=== PATIENT | male | born 1990 | race Caucasian/White ===

== ENCOUNTER 2022-11-16 19:03 | Inpatient (IN) | payer MEDICAID ==
[~2022-11-16] VITALS: Ht 177.8 cm; Wt 71.9 kg
[2022-11-16 19:05] VITALS: BP 112/74
[2022-11-16] MEDS ORDERED: KEPPRA1000 MG PO (19:17)
[2022-11-16 19:53] LABS: BASO % 0.3 % (0.0-1.0); EOS % 0.3 % (1.0-4.0); HEMATOCRIT 41.2 % (42.0-52.0); LYMPH # 1.6 10*3/uL (1.3-4.4); LYMPH % 18.4 % (27.0-41.0); MEAN CELL VOLUME 97.2 fl (80.0-94.0); MEAN PLATELET VOLUME 10.1 fl (9.6-12.3); MONO # 0.6 10*3/uL (0.1-1.0); MONO % 6.3 % (3.0-9.0); NEUT # 6.5 10*3/uL (2.3-7.9); NEUT % 74.4 % (47.0-73.0); PLATELET COUNT AUTOMATED 137 10*3/uL (130-400); RED BLOOD COUNT 4.24 10*6/uL (4.50-5.90); RED CELL DISTRI WIDTH 13.7 % (0-14.5); WHITE BLOOD COUNT 8.7 10*3/uL (4.8-10.8)
[2022-11-16 20:13] LABS: BILIRUBIN 2+ (Negative); BLOOD Negative (Negative); CLARITY Clear (Clear); COLOR Dark Yellow (Yellow); GLUCOSE Negative (Negative); KETONE 1+ (Negative); LEUKO ESTERASE Trace (Negative); NITRITE Negative (Negative); SPECIFIC GRAVITY >= 1.030 (1.001-1.030)
[2022-11-16 20:21] LABS: ALKALINE PHOSPHATASE 44 U/L (46-116); BUN 7 mg/dl (9-23); CHLORIDE 107 mmol/L (98-107); POTASSIUM 3.1 mmol/L (3.4-5.1); SGPT/ALT 75 U/L (10-49); TOTAL PROTEIN 6.3 gm/dL (6.0-8.0)
[2022-11-16 20:24] LABS: ETHYL ALCOHOL 360.9 mg/dl (<3)
[2022-11-16 20:38] LABS: EPITHELIAL CELLS 0-2; MUCOUS 1+; WBC 0-2 wbc/hpf (0-5)
[2022-11-16 22:38] LABS: URINE AMPHETAMINES Negative (1000ng/ml); URINE BARBITURATES Negative (200ng/ml); URINE BENZODIAZEPINES Positive (200ng/ml); URINE CANNABINOIDS (THC) Negative (50ng/ml); URINE COCAINE Negative (300ng/ml); URINE METHADONE Negative (300ng/ml); URINE OPIATES Negative (300ng/ml); URINE PHENCYCLIDINE Negative (25ng/ml)
[2022-11-17 02:18] VITALS: BP 122/76
[2022-11-17 09:18] VITALS: BP 126/90
[2022-11-17 11:55] VITALS: BP 127/88
[2022-11-17 16:35] VITALS: BP 154/94
[2022-11-17 20:00] VITALS: BP 147/105
[2022-11-17] MEDS ORDERED: SEROQUEL50 MG PO (22:05)
[2022-11-17 22:14] VITALS: BP 142/90
[2022-11-18] VITALS: BP 140/88
[2022-11-18 07:31] LABS: BASO % 0.5 % (0.0-1.0); EOS % 0.7 % (1.0-4.0); HEMATOCRIT 42.9 % (42.0-52.0); LYMPH # 1.4 10*3/uL (1.3-4.4); LYMPH % 24.6 % (27.0-41.0); MEAN CELL VOLUME 95.8 fl (80.0-94.0); MEAN CORPUSCULAR HGB 33.7 pg (27.0-31.0); MEAN CORPUSCULAR HGB CONC 35.2 g/dl (33.0-37.0); MEAN PLATELET VOLUME 10.2 fl (9.6-12.3); MONO # 0.5 10*3/uL (0.1-1.0); MONO % 8.8 % (3.0-9.0); NEUT # 3.7 10*3/uL (2.3-7.9); PLATELET COUNT AUTOMATED 137 10*3/uL (130-400); RED BLOOD COUNT 4.48 10*6/uL (4.50-5.90); WHITE BLOOD COUNT 5.7 10*3/uL (4.8-10.8)
[2022-11-18 07:59] LABS: ALKALINE PHOSPHATASE 50 U/L (46-116); CHLORIDE 104 mmol/L (98-107); CHOLESTEROL 153 mg/dL (<200); FREE T4 1.03 ng/dl (0.89-1.76); LDL CHOLESTEROL 59 mg/dL (9-159); POTASSIUM 3.3 mmol/L (3.4-5.1); SGPT/ALT 60 U/L (10-49); TOTAL PROTEIN 6.2 gm/dL (6.0-8.0); TRIGLYCERIDES 86 mg/dl (<150)
[2022-11-18 08:00] VITALS: BP 146/102
[2022-11-18 08:10] LABS: BUN < 5 mg/dl (9-23)
[2022-11-18 12:00] VITALS: BP 143/102
[2022-11-18] MEDS ORDERED: LOPRESSOR50 M1 PO (13:19)
[2022-11-18] MEDS ORDERED: LEVETIRACETAM500 MG PO (13:24)
[2022-11-18] MEDS ORDERED: VIMPAT100 MG PO (13:24)
[2022-11-18] MEDS ORDERED: THIAMINE HCL100 MG PO (13:27)
[2022-11-18 13:41] VITALS: BP 138/84
== END 2022-11-18 14:00 | disposition home or self-care (01) | DRG 53 ==
LOC: ED 19:03 → EDHOLD 11-17 07:05 → EDBD 11-17 07:05 → 5E 11-17 07:05
PROVIDERS: Emergency Medicine; Internal Medicine; ADMIT Internal Medicine; ATTEND Internal Medicine
DX: G40.909 Epilepsy, unspecified, not intractable, without status epilepticus (principal); F10.920 Alcohol use, unspecified with intoxication, uncomplicated; E87.20 Acidosis, unspecified; E87.6 Hypokalemia; E83.51 Hypocalcemia; R00.0 Tachycardia, unspecified; R74.01 Elevation of levels of liver transaminase levels; E80.6 Other disorders of bilirubin metabolism; F17.210 Nicotine dependence, cigarettes, uncomplicated; I10 Essential (primary) hypertension; Z88.0 Allergy status to penicillin; Z88.8 Allergy status to other drugs, medicaments and biological substances; Z79.899 Other long term (current) drug therapy; Z71.6 Tobacco abuse counseling

== ENCOUNTER 2023-01-06 20:03 | Emergency (ER) | payer MEDICAID ==
[~2023-01-06 20:03] MED LIST: KEPPRA1000 MG PO; LEVETIRACETAM500 MG PO; LOPRESSOR50 M1 PO; SEROQUEL50 MG PO; THIAMINE HCL100 MG PO; VIMPAT100 MG PO
== END 2023-01-06 20:30 | disposition left against medical advice (07) ==
LOC: ED 20:03
DX: R69 Illness, unspecified (principal); Z88.0 Allergy status to penicillin; Z88.8 Allergy status to other drugs, medicaments and biological substances; Z53.21 Procedure and treatment not carried out due to patient leaving prior to being seen by health care provider

== ENCOUNTER 2023-02-15 18:52 | Emergency (ER) | payer MEDICAID ==
[~2023-02-15] VITALS: Ht 177.8 cm; Wt 74.8 kg
== END 2023-02-15 20:04 | disposition home or self-care (01) ==
LOC: ED 18:52
DX: S61.012A Laceration without foreign body of left thumb without damage to nail, initial encounter (principal); F17.200 Nicotine dependence, unspecified, uncomplicated; Z88.0 Allergy status to penicillin; Z88.8 Allergy status to other drugs, medicaments and biological substances; Z79.899 Other long term (current) drug therapy; Z90.89 Acquired absence of other organs; W45.8XXA Other foreign body or object entering through skin, initial encounter; Y93.89 Activity, other specified; Y92.89 Other specified places as the place of occurrence of the external cause; Y99.8 Other external cause status

== ENCOUNTER 2023-03-01 12:43 | Emergency (ER) | payer MEDICAID ==
[~2023-03-01] VITALS: Ht 170.1 cm; Wt 72.6 kg
[2023-03-01 13:30] LABS: EOS % 0.5 % (1.0-4.0)
[2023-03-01 13:49] LABS: BASO % 0.3 % (0.0-1.0); HEMATOCRIT 42.5 % (42.0-52.0); LYMPH # 2.1 10*3/uL (1.3-4.4); LYMPH % 55.9 % (27.0-41.0); MEAN CELL VOLUME 95.7 fl (80.0-94.0); MEAN CORPUSCULAR HGB CONC 35.5 g/dl (33.0-37.0); MEAN PLATELET VOLUME 10.1 fl (9.6-12.3); MONO # 0.4 10*3/uL (0.1-1.0); MONO % 9.5 % (3.0-9.0); NEUT # 1.3 10*3/uL (2.3-7.9); NEUT % 33.8 % (47.0-73.0); PLATELET COUNT AUTOMATED 143 10*3/uL (130-400); RED BLOOD COUNT 4.44 10*6/uL (4.50-5.90); RED CELL DISTRI WIDTH 13.7 % (0-14.5); WHITE BLOOD COUNT 3.8 10*3/uL (4.8-10.8)
[2023-03-01 13:51] LABS: ALKALINE PHOSPHATASE 41 U/L (46-116); BUN 7 mg/dl (9-23); CHLORIDE 108 mmol/L (98-107); POTASSIUM 3.8 mmol/L (3.4-5.1); SGPT/ALT 14 U/L (5-49); TOTAL PROTEIN 6.7 gm/dL (6.0-8.0)
[2023-03-01 14:18] LABS: BILIRUBIN Negative (Negative); BLOOD Negative (Negative); CLARITY Clear (Clear); COLOR Yellow (Yellow); GLUCOSE Negative (Negative); KETONE Negative (Negative); LEUKO ESTERASE Negative (Negative); NITRITE Negative (Negative)
[2023-03-01 14:32] LABS: RBC 0-2 rbc/hpf (0-2); WBC 0-2 wbc/hpf (0-5)
[2023-03-01] MEDS ORDERED: METOPROLOL SUCC50 M1 PO (14:46)
[2023-03-01] MEDS ORDERED: SEROQUEL50 MG PO (14:46)
[2023-03-01] MEDS ORDERED: NATURE'S BLEND100 M2 PO (14:46)
[2023-03-01] MEDS ORDERED: KEPPRA1000 MG PO (14:46)
[2023-03-01] MEDS ORDERED: VIMPAT100 MG PO (14:46)
== END 2023-03-01 14:54 | disposition home or self-care (01) ==
LOC: ED
PROVIDERS: Physician Assistant Medical
DX: S93.402A Sprain of unspecified ligament of left ankle, initial encounter (principal); M62.830 Muscle spasm of back; R56.9 Unspecified convulsions; I10 Essential (primary) hypertension; Z88.0 Allergy status to penicillin; Z88.8 Allergy status to other drugs, medicaments and biological substances; Z90.89 Acquired absence of other organs; Z98.890 Other specified postprocedural states; F17.200 Nicotine dependence, unspecified, uncomplicated; F10.10 Alcohol abuse, uncomplicated; X50.1XXA Overexertion from prolonged static or awkward postures, initial encounter; Y93.89 Activity, other specified; Y92.89 Other specified places as the place of occurrence of the external cause; Y99.8 Other external cause status

== ENCOUNTER 2023-04-29 02:29 | Emergency (ER) | payer MEDICAID ==
[~2023-04-29] VITALS: Ht 177.8 cm; Wt 74.8 kg
[~2023-04-29 02:29] MED LIST changes: +METOPROLOL SUCC50 M1 PO; +NATURE'S BLEND100 M2 PO
== END 2023-04-29 04:21 | disposition home or self-care (01) ==
LOC: ED 02:29
DX: S05.01XA Injury of conjunctiva and corneal abrasion without foreign body, right eye, initial encounter (principal); G40.909 Epilepsy, unspecified, not intractable, without status epilepticus; I10 Essential (primary) hypertension; F17.200 Nicotine dependence, unspecified, uncomplicated; Z88.0 Allergy status to penicillin; Z88.8 Allergy status to other drugs, medicaments and biological substances; Z79.899 Other long term (current) drug therapy; Z90.89 Acquired absence of other organs; W55.09XA Other contact with cat, initial encounter; Y93.89 Activity, other specified; Y92.89 Other specified places as the place of occurrence of the external cause; Y99.8 Other external cause status

== ENCOUNTER 2023-05-14 15:19 | Emergency (ER) | payer MEDICAID ==
[~2023-05-14] VITALS: Wt 71.7 kg
== END 2023-05-14 16:47 | disposition left against medical advice (07) ==
LOC: ED 15:19
DX: S09.90XA Unspecified injury of head, initial encounter (principal); R56.9 Unspecified convulsions; R09.81 Nasal congestion; Z88.0 Allergy status to penicillin; Z88.8 Allergy status to other drugs, medicaments and biological substances; Z90.89 Acquired absence of other organs; Z98.890 Other specified postprocedural states; F10.10 Alcohol abuse, uncomplicated; F17.200 Nicotine dependence, unspecified, uncomplicated; W01.10XA Fall on same level from slipping, tripping and stumbling with subsequent striking against unspecified object, initial encounter; Y93.89 Activity, other specified; Y92.89 Other specified places as the place of occurrence of the external cause; Y99.8 Other external cause status

== ENCOUNTER 2023-05-16 07:00 | Emergency (ER) | payer MEDICAID ==
[~2023-05-16] VITALS: Ht 177.8 cm; Wt 74.8 kg
[2023-05-16] MEDS ORDERED: VIMPAT200 MG PO (07:12)
[2023-05-16 08:00] LABS: BASO % 0.5 % (0.0-1.0); EOS % 0.7 % (1.0-4.0); HEMATOCRIT 41.3 % (42.0-52.0); LYMPH # 1.9 10*3/uL (1.3-4.4); LYMPH % 32.7 % (27.0-41.0); MEAN CORPUSCULAR HGB 35.2 pg (27.0-31.0); MEAN CORPUSCULAR HGB CONC 34.9 g/dl (33.0-37.0); MEAN PLATELET VOLUME 12.3 fl (9.6-12.3); MONO # 0.6 10*3/uL (0.1-1.0); MONO % 10.7 % (3.0-9.0); NEUT # 3.1 10*3/uL (2.3-7.9); NEUT % 54.9 % (47.0-73.0); PLATELET COUNT AUTOMATED 69 10*3/uL (130-400); RED BLOOD COUNT 4.09 10*6/uL (4.50-5.90); RED CELL DISTRI WIDTH 12.5 % (0-14.5); WHITE BLOOD COUNT 5.7 10*3/uL (4.8-10.8)
[2023-05-16 08:20] LABS: ALKALINE PHOSPHATASE 38 U/L (46-116); BUN 12 mg/dl (9-23); CHLORIDE 96 mmol/L (98-107); ETHYL ALCOHOL 225.4 mg/dl (<3); SGPT/ALT 133 U/L (5-49); TOTAL PROTEIN 6.9 gm/dL (6.0-8.0)
[2023-05-16] MEDS ORDERED: CLINDAMYCIN HC300 MG PO (08:26)
== END 2023-05-16 08:30 | disposition left against medical advice (07) ==
LOC: ED 07:00
PROVIDERS: Emergency Medicine
DX: F10.920 Alcohol use, unspecified with intoxication, uncomplicated (principal); K14.8 Other diseases of tongue; G40.909 Epilepsy, unspecified, not intractable, without status epilepticus; F17.200 Nicotine dependence, unspecified, uncomplicated; Z88.0 Allergy status to penicillin; Z88.8 Allergy status to other drugs, medicaments and biological substances; Z79.899 Other long term (current) drug therapy; Z90.89 Acquired absence of other organs; Y90.7 Blood alcohol level of 200-239 mg/100 ml

== ENCOUNTER 2023-05-18 19:30 | Emergency (ER) | payer MEDICAID ==
[~2023-05-18] VITALS: Ht 177.8 cm; Wt 72.6 kg
[~2023-05-18 19:30] MED LIST changes: +CLINDAMYCIN HC300 MG PO; +VIMPAT200 MG PO
[2023-05-18] MEDS ORDERED: VIBRAMYCIN100 MG PO (22:45)
[2023-05-18 23:26] LABS: BASO % 0.5 % (0.0-1.0); EOS # 0.1 10*3/uL (0.0-0.4); EOS % 1.5 % (1.0-4.0); HEMATOCRIT 35.3 % (42.0-52.0); LYMPH # 1.7 10*3/uL (1.3-4.4); LYMPH % 41.3 % (27.0-41.0); MEAN CELL VOLUME 102.3 fl (80.0-94.0); MEAN CORPUSCULAR HGB 35.7 pg (27.0-31.0); MEAN CORPUSCULAR HGB CONC 34.8 g/dl (33.0-37.0); MEAN PLATELET VOLUME 10.9 fl (9.6-12.3); MONO # 0.6 10*3/uL (0.1-1.0); NEUT # 1.7 10*3/uL (2.3-7.9); NEUT % 42.4 % (47.0-73.0); PLATELET COUNT AUTOMATED 143 10*3/uL (130-400); RED BLOOD COUNT 3.45 10*6/uL (4.50-5.90); RED CELL DISTRI WIDTH 12.3 % (0-14.5)
[2023-05-18 23:47] LABS: ALKALINE PHOSPHATASE 33 U/L (46-116); CHLORIDE 100 mmol/L (98-107); POTASSIUM 3.2 mmol/L (3.4-5.1); SGPT/ALT 158 U/L (5-49); TOTAL PROTEIN 6.3 gm/dL (6.0-8.0)
[2023-05-18 23:51] LABS: BUN < 5 mg/dl (9-23)
== END 2023-05-19 05:55 | disposition home or self-care (01) ==
LOC: ED 19:30
PROVIDERS: Emergency Medicine
DX: S00.532A Contusion of oral cavity, initial encounter (principal); F10.10 Alcohol abuse, uncomplicated; F17.200 Nicotine dependence, unspecified, uncomplicated; Z88.0 Allergy status to penicillin; Z88.8 Allergy status to other drugs, medicaments and biological substances; Z90.89 Acquired absence of other organs; Z98.890 Other specified postprocedural states; X58.XXXA Exposure to other specified factors, initial encounter; Y93.89 Activity, other specified; Y92.099 Unspecified place in other non-institutional residence as the place of occurrence of the external cause; Y99.8 Other external cause status

== ENCOUNTER 2023-07-06 20:01 | Emergency (ER) | payer MEDICAID ==
[~2023-07-06] VITALS: Ht 177.8 cm; Wt 81.6 kg
[~2023-07-06 20:01] MED LIST changes: +VIBRAMYCIN100 MG PO
[2023-07-06] MEDS ORDERED: VIBRAMYCIN100 MG PO (20:24)
[2023-07-06] MEDS ORDERED: SILVADENE20 GM T (20:24)
[2023-07-06] MEDS ORDERED: Doxycycline Hyclate 100 MG CAP PO ONE (20:25)
[2023-07-06] MEDS ORDERED: Lidocaine/Prilocaine 5 GM TUBE T ONE (20:25)
[2023-07-06] MEDS ORDERED: SILVER SULFADIAZINE 25 GM TUBE T ONE (20:25)
== END 2023-07-06 20:57 | disposition home or self-care (01) ==
LOC: ED 20:01
DX: T23.212A Burn of second degree of left thumb (nail), initial encounter (principal); L03.012 Cellulitis of left finger; G40.909 Epilepsy, unspecified, not intractable, without status epilepticus; F17.200 Nicotine dependence, unspecified, uncomplicated; Z88.0 Allergy status to penicillin; Z88.8 Allergy status to other drugs, medicaments and biological substances; Z79.899 Other long term (current) drug therapy; Z90.89 Acquired absence of other organs; Z98.890 Other specified postprocedural states; X08.8XXA Exposure to other specified smoke, fire and flames, initial encounter; Y93.89 Activity, other specified; Y92.89 Other specified places as the place of occurrence of the external cause; Y99.8 Other external cause status

== ENCOUNTER 2023-08-03 21:19 | Emergency (ER) | payer SELFPAY ==
[~2023-08-03] VITALS: Wt 75.5 kg
[~2023-08-03 21:19] MED LIST changes: +ATARAX,VISTARIL50 MG PO; +ONDANSETRON4 MG SL; +SILVADENE20 GM T
[2023-08-03] MEDS ORDERED: Thiamine 200 MG/2 ML VIAL IV ONE (21:30)
[2023-08-03] MEDS ORDERED: SODIUM CHLORIDE 0.9% 1,000 ML IV ONE (21:30)
[2023-08-03 21:43] LABS: BASO % 0.3 % (0.0-1.0); EOS # 0.1 10*3/uL (0.0-0.4); EOS % 1.1 % (1.0-4.0); LYMPH # 2.7 10*3/uL (1.3-4.4); MEAN CELL VOLUME 101.3 fl (80.0-94.0); MEAN CORPUSCULAR HGB 33.2 pg (27.0-31.0); MEAN CORPUSCULAR HGB CONC 32.8 g/dl (33.0-37.0); MEAN PLATELET VOLUME 9.6 fl (9.6-12.3); MONO # 0.5 10*3/uL (0.1-1.0); MONO % 6.8 % (3.0-9.0); NEUT % 54.3 % (47.0-73.0); PLATELET COUNT AUTOMATED 379 10*3/uL (130-400); RED BLOOD COUNT 3.95 10*6/uL (4.50-5.90); RED CELL DISTRI WIDTH 12.3 % (0-14.5); WHITE BLOOD COUNT 7.4 10*3/uL (4.8-10.8)
[2023-08-03 22:15] LABS: ALKALINE PHOSPHATASE 30 U/L (46-116); CHLORIDE 107 mmol/L (98-107); POTASSIUM 4.2 mmol/L (3.4-5.1); SGPT/ALT 32 U/L (5-49); TOTAL PROTEIN 6.4 gm/dL (6.0-8.0)
[2023-08-03 22:18] LABS: BUN < 5 mg/dl (9-23)
[2023-08-03 22:20] LABS: ETHYL ALCOHOL 311.4 mg/dl (<3)
[2023-08-04 00:11] LABS: BILIRUBIN Negative (Negative); BLOOD Negative (Negative); CLARITY Clear (Clear); COLOR Yellow (Yellow); GLUCOSE Negative (Negative); KETONE Negative (Negative); LEUKO ESTERASE Negative (Negative); NITRITE Negative (Negative); SPECIFIC GRAVITY <= 1.005 (1.001-1.030); UROBILINOGEN 0.2 E.U./dl (0.0-1.0)
[2023-08-04 00:14] LABS: URINE AMPHETAMINES Negative (1000ng/ml); URINE BARBITURATES Negative (200ng/ml); URINE BENZODIAZEPINES Negative (200ng/ml); URINE CANNABINOIDS (THC) Negative (50ng/ml); URINE COCAINE Negative (300ng/ml); URINE METHADONE Negative (300ng/ml); URINE OPIATES Negative (300ng/ml); URINE PHENCYCLIDINE Negative (25ng/ml)
[2023-08-04 00:19] LABS: WBC 0-2 wbc/hpf (0-5)
[2023-08-04] MEDS ORDERED: LEVETIRACETAM 500 MG TAB PO ONE (06:45)
[2023-08-04] MEDS ORDERED: DIAZEPAM 10 MG/2 ML SYR IV ONE (06:55)
[2023-08-04] MEDS ORDERED: PREDNISONE20 M1 PO (07:13)
[2023-08-04] MEDS ORDERED: methylPREDNISolone sod succ 125 MG VIAL IV ONE (07:15)
== END 2023-08-04 07:15 | disposition home or self-care (01) ==
LOC: ED 21:19
PROVIDERS: Internal Medicine
DX: F10.129 Alcohol abuse with intoxication, unspecified (principal); R56.9 Unspecified convulsions; M25.562 Pain in left knee; M79.672 Pain in left foot; D53.9 Nutritional anemia, unspecified; I10 Essential (primary) hypertension; J45.909 Unspecified asthma, uncomplicated; Z88.0 Allergy status to penicillin; Z88.8 Allergy status to other drugs, medicaments and biological substances; Z90.89 Acquired absence of other organs; Z98.890 Other specified postprocedural states; F17.200 Nicotine dependence, unspecified, uncomplicated; F10.10 Alcohol abuse, uncomplicated; Y90.5 Blood alcohol level of 100-119 mg/100 ml

== ENCOUNTER 2023-08-08 16:50 | Emergency (ER) | payer SELFPAY ==
[~2023-08-08] VITALS: Ht 177.8 cm; Wt 77.1 kg
[~2023-08-08 16:50] MED LIST changes: +PREDNISONE20 M1 PO
[2023-08-08] MEDS ORDERED: Dexamethasone Sodium Phospha 20 MG/5 ML VIAL IM ONE (17:20)
== END 2023-08-08 19:59 | disposition home or self-care (01) ==
LOC: ED 16:50
DX: S82.492A Other fracture of shaft of left fibula, initial encounter for closed fracture (principal); F17.210 Nicotine dependence, cigarettes, uncomplicated; Z88.0 Allergy status to penicillin; Z88.8 Allergy status to other drugs, medicaments and biological substances; Z79.899 Other long term (current) drug therapy; Z98.890 Other specified postprocedural states; Z90.89 Acquired absence of other organs; W22.8XXA Striking against or struck by other objects, initial encounter; Y93.89 Activity, other specified; Y92.89 Other specified places as the place of occurrence of the external cause; Y99.8 Other external cause status

== ENCOUNTER 2023-08-10 20:03 | Emergency (ER) | payer SELFPAY ==
[~2023-08-10] VITALS: Ht 177.8 cm; Wt 81.6 kg
[2023-08-10] MEDS ORDERED: HYDROCODONE-AC1 EAC1 PO (20:33)
[2023-08-10] MEDS ORDERED: Acetaminophen/Hydrocodone 5 MG/325 MG TABLET PO ONE (20:35)
== END 2023-08-10 20:39 | disposition home or self-care (01) ==
LOC: ED 20:03
DX: S82.832D Other fracture of upper and lower end of left fibula, subsequent encounter for closed fracture with routine healing (principal); F17.210 Nicotine dependence, cigarettes, uncomplicated; Z88.0 Allergy status to penicillin; Z88.8 Allergy status to other drugs, medicaments and biological substances; Z79.899 Other long term (current) drug therapy; Z98.890 Other specified postprocedural states; Z90.89 Acquired absence of other organs; V09.9XXD Pedestrian injured in unspecified transport accident, subsequent encounter

== ENCOUNTER 2023-08-15 11:10 | Emergency (ER) | payer OTHER ==
[~2023-08-15] VITALS: Ht 177.8 cm; Wt 70.3 kg
[~2023-08-15 11:10] MED LIST changes: +HYDROCODONE-AC1 EAC1 PO
[2023-08-15] MEDS ORDERED: Thiamine 200 MG/2 ML VIAL IV ONE (11:30)
[2023-08-15] MEDS ORDERED: SODIUM CHLORIDE 0.9% 1,000 ML IV ONE (11:30)
[2023-08-15] MEDS ORDERED: IOHEXOL 300 MG/ML 100 ML VIAL IV ONE (11:40)
[2023-08-15 11:52] LABS: BASO % 0.5 % (0.0-1.0); EOS # 0.1 10*3/uL (0.0-0.4); HEMATOCRIT 38.4 % (42.0-52.0); LYMPH # 2.4 10*3/uL (1.3-4.4); LYMPH % 40.4 % (27.0-41.0); MEAN CELL VOLUME 101.6 fl (80.0-94.0); MEAN CORPUSCULAR HGB 32.5 pg (27.0-31.0); MEAN PLATELET VOLUME 10.3 fl (9.6-12.3); MONO # 0.4 10*3/uL (0.1-1.0); MONO % 6.6 % (3.0-9.0); NEUT # 3.1 10*3/uL (2.3-7.9); NEUT % 51.3 % (47.0-73.0); PLATELET COUNT AUTOMATED 208 10*3/uL (130-400); RED BLOOD COUNT 3.78 10*6/uL (4.50-5.90); RED CELL DISTRI WIDTH 12.4 % (0-14.5); WHITE BLOOD COUNT 5.9 10*3/uL (4.8-10.8)
[2023-08-15] MEDS ORDERED: IOHEXOL 300 MG/ML 100 ML VIAL ONE (12:07)
[2023-08-15 12:09] LABS: ACT PARTIAL THROMBO TIME 25.6 SECONDS (20.0-32.1)
[2023-08-15 12:22] LABS: ALKALINE PHOSPHATASE 32 U/L (46-116); BUN 8 mg/dl (9-23); CHLORIDE 109 mmol/L (98-107); LIPASE 49 U/L (12-53); POTASSIUM 3.7 mmol/L (3.4-5.1); SGPT/ALT 27 U/L (5-49); TOTAL PROTEIN 6.1 gm/dL (6.0-8.0)
[2023-08-15 12:27] LABS: ETHYL ALCOHOL 304.7 mg/dl (<3)
[2023-08-15] MEDS ORDERED: ACETAMINOPHEN 325 MG TAB PO ONE (15:40)
== END 2023-08-15 15:53 ==
LOC: ED 11:10
PROVIDERS: Nurse Practitioner Family
DX: S82.65XA Nondisplaced fracture of lateral malleolus of left fibula, initial encounter for closed fracture (principal); M54.2 Cervicalgia; F10.129 Alcohol abuse with intoxication, unspecified; D53.9 Nutritional anemia, unspecified; Z88.0 Allergy status to penicillin; Z88.8 Allergy status to other drugs, medicaments and biological substances; E83.51 Hypocalcemia; I10 Essential (primary) hypertension; F32.A Depression, unspecified; F41.9 Anxiety disorder, unspecified; J45.909 Unspecified asthma, uncomplicated; E11.9 Type 2 diabetes mellitus without complications; Z90.89 Acquired absence of other organs; Z98.890 Other specified postprocedural states; F17.200 Nicotine dependence, unspecified, uncomplicated; Y90.8 Blood alcohol level of 240 mg/100 ml or more; V49.49XA Driver injured in collision with other motor vehicles in traffic accident, initial encounter; Y93.89 Activity, other specified; Y92.410 Unspecified street and highway as the place of occurrence of the external cause; Y99.8 Other external cause status

== ENCOUNTER 2024-01-28 12:39 | Emergency (ER) | payer MEDICAID ==
[~2024-01-28] VITALS: Ht 177.8 cm; Wt 68.0 kg
[~2024-01-28 12:39] MED LIST changes: +DICYCLOMINE HYD10 MG PO; +ESCITALOPRAM OX10 MG PO; +NAPROXEN500 MG PO; +PROAIR RESPICL90 MCG INH; +REMERON15 M2 PO; +VITAMIN D325 MC1 PO
[2024-01-28] MEDS ORDERED: SODIUM CHLORIDE 0.9% 1,000 ML IV ONE ×2 (13:05→13:20)
[2024-01-28] MEDS ORDERED: Naloxone Hydrochloride 2 MG/2 ML SYR IV ONE (13:05)
[2024-01-28] MEDS ORDERED: Pantoprazole Sodium 40 MG IV ONE (13:05)
[2024-01-28] MEDS ORDERED: Pantoprazole Sodium 40 MG VIAL IV ONE (13:10)
[2024-01-28 13:14] LABS: BASO % 0.3 % (0.0-1.0); EOS # 0.1 10*3/uL (0.0-0.4); EOS % 1.2 % (1.0-4.0); HEMATOCRIT 39.1 % (42.0-52.0); LYMPH # 2.7 10*3/uL (1.3-4.4); LYMPH % 46.6 % (27.0-41.0); MEAN CORPUSCULAR HGB 30.6 pg (27.0-31.0); MEAN CORPUSCULAR HGB CONC 33.2 g/dl (33.0-37.0); MEAN PLATELET VOLUME 10.4 fl (9.6-12.3); MONO # 0.3 10*3/uL (0.1-1.0); MONO % 5.7 % (3.0-9.0); NEUT # 2.6 10*3/uL (2.3-7.9); PLATELET COUNT AUTOMATED 212 10*3/uL (130-400); RED BLOOD COUNT 4.25 10*6/uL (4.50-5.90); RED CELL DISTRI WIDTH 12.7 % (0-14.5); WHITE BLOOD COUNT 5.8 10*3/uL (4.8-10.8)
[2024-01-28] MEDS ORDERED: IOHEXOL 300 MG/ML 100 ML VIAL IV ONE (13:25)
[2024-01-28 13:36] LABS: ALKALINE PHOSPHATASE 47 U/L (46-116); BUN 8 mg/dl (9-23); CHLORIDE 109 mmol/L (98-107); LIPASE 33 U/L (12-53); POTASSIUM 3.6 mmol/L (3.4-5.1); SGPT/ALT 10 U/L (5-49); TOTAL PROTEIN 6.4 gm/dL (6.0-8.0)
[2024-01-28] MEDS ORDERED: FLUMAZENIL 0.5 MG/5 ML VIAL IV ONE (15:00)
[2024-01-28 15:22] LABS: BILIRUBIN Negative (Negative); BLOOD Negative (Negative); CLARITY Clear (Clear); COLOR Yellow (Yellow); GLUCOSE Negative (Negative); KETONE Negative (Negative); LEUKO ESTERASE Negative (Negative); NITRITE Negative (Negative); PH 5.5 (4.5-8.0); UROBILINOGEN 0.2 E.U./dl (0.0-1.0)
[2024-01-28 15:30] LABS: URINE AMPHETAMINES Negative (1000ng/ml); URINE BARBITURATES Negative (200ng/ml); URINE BENZODIAZEPINES Negative (200ng/ml); URINE CANNABINOIDS (THC) Negative (50ng/ml); URINE COCAINE Negative (300ng/ml); URINE METHADONE Negative (300ng/ml); URINE OPIATES Negative (300ng/ml); URINE PHENCYCLIDINE Negative (25ng/ml)
[2024-01-28 15:38] LABS: WBC 0-2 wbc/hpf (0-5)
[2024-01-28] MEDS ORDERED: ACETAMINOPHEN 325 MG TAB PO ONE (15:45)
[2024-01-28] MEDS ORDERED: LACOSAMIDE 50 MG TAB PO ONE (15:45)
[2024-01-28] MEDS ORDERED: KEPPRA1000 MG PO (19:14)
[2024-01-28] MEDS ORDERED: VIMPAT200 MG PO (19:14)
== END 2024-01-28 19:17 | disposition home or self-care (01) ==
LOC: ED 12:39
PROVIDERS: Emergency Medicine
DX: T40.602A Poisoning by unspecified narcotics, intentional self-harm, initial encounter (principal); I10 Essential (primary) hypertension; F32.A Depression, unspecified; F41.9 Anxiety disorder, unspecified; J45.909 Unspecified asthma, uncomplicated; F10.10 Alcohol abuse, uncomplicated; F12.90 Cannabis use, unspecified, uncomplicated; F17.200 Nicotine dependence, unspecified, uncomplicated; F15.10 Other stimulant abuse, uncomplicated; R10.30 Lower abdominal pain, unspecified; Z88.0 Allergy status to penicillin; Z88.8 Allergy status to other drugs, medicaments and biological substances; Z90.89 Acquired absence of other organs; Z98.890 Other specified postprocedural states; Y92.89 Other specified places as the place of occurrence of the external cause